=== PATIENT | male | born 1995 | race Caucasian/White ===

== ENCOUNTER 2021-08-20 12:11 | Emergency (ER) | payer OTHER ==
[~2021-08-20] VITALS: Ht 182.9 cm; Wt 104.5 kg
[2021-08-20 12:49] VITALS: BP 100/77; TEMP 97.6
[2021-08-20] MEDS ORDERED: MEDROL 4MG DOSPA4 MG PO (15:41)
[2021-08-20] MEDS ORDERED: PERCOCET 325 MG1 TA2 PO (15:41)
[2021-08-20] MEDS ORDERED: FLEXERIL 1010 MG/TAB PO (15:41)
[2021-08-20 16:24] VITALS: PULSE 82
== END 2021-08-20 16:24 | disposition home or self-care (01) ==
LOC: COL.ER 12:11
DX: M54.16 Radiculopathy, lumbar region (principal); M51.26 Other intervertebral disc displacement, lumbar region
CPT/HCPCS: J1885; J2270; J3360